=== PATIENT | male | born 1985 | race Caucasian/White ===

== ENCOUNTER 2016-03-06 22:11 | Emergency (ER) | payer OTHER ==
[2016-03-06] MEDS ORDERED: LORazepam 2 MG/ML INJ IVP ONE ×2 (22:25→23:25)
[2016-03-06] MEDS ORDERED: NS 1,000 ML IV ONE ×3 (22:25→23:38)
--- NOTE | 2016-03-06 22:26 | EDPHY ---
H & P Smoking Status: Never smoked Time Seen by Provider: 03/06/16 22:20 HPI/ROS: CHIEF COMPLAINT: Nausea and vomiting HISTORY OF PRESENT ILLNESS: This 30-year-old man has a long history of alcoholism typically drinking about a 5th a day of hard alcohol. His last alcoholic drink was at 5:00 a.m. today. He states that his roommates did find him on the floor today and wonders out loud to me if he might have had a seizure. However he did not have any trauma, did not bite his tongue or have incontinence. Roommates did not witness any seizure per patient. He presents with tremors and multiple episodes of nausea and vomiting. No coffee -ground emesis or hematemesis. Not associated with diarrhea or abdominal pain. Symptoms moderate to severe and worse with any oral intake. REVIEW OF SYSTEMS: Eye: no change in vision ENT: no sore throat Cardiac: no chest pain or syncope Pulmonary: no cough or SOB Abdomen: HPI Musculoskeletal: no back pain or neck pain Skin: no rash Neuro: no headache Constitutional: no fever : no urinary symptoms A comprehensive 10 point review of systems is otherwise negative aside from elements mentioned in the history of present illness. PAST MEDICAL HISTORY: Alcoholism Social history: Last drink 5:00 a.m. General Appearance: Alert and conversant, cooperative. Eyes: No scleral icterus. ENT, Mouth: Dry mucous membranes and no tongue laceration or abrasion. Respiratory: Normal respiratory effort, breath sounds equal, lungs are clear to auscultation. Cardiovascular: Regular rate and rhythm. Tachycardic Gastrointestinal: Abdomen is soft and non tender. No peritoneal signs. Neurological: Alert and oriented x3. Normally conversant. Face symmetric, normal movement and sensation in all extremities. Tremulous but not hallucinating. Skin: Warm and dry, no rashes. Musculoskeletal: No peripheral edema and no joint swelling. No spinal tenderness in the midline Psychiatric: Not agitated. Moderately anxious. Emergency Department course/MDM: Patient presents with acute alcohol withdrawal. 2 mg IV Ativan, CBC chemistry and EKG. 2 L IV normal saline for nausea and vomiting. Signed out to Dr. Brown at 10:30 p.m. with a plan for symptomatic treatment of alcohol withdrawal, discharge to detox if symptoms can be controlled, and chemistries do not show a metabolic abnormality that requires hospitalization. 2250: Calmer, heart rate 100, no vomiting currently, not tremulous now. (Yoel Rosa) Constitutional: Initial Vital Signs Temperature (C) 36.7 C 03/06/16 22:16 Heart Rate 117 H 03/06/16 22:16 Respiratory Rate 18 03/06/16 22:16 Blood Pressure 131/85 H 03/06/16 22:16 O2 Sat (%) 95 03/06/16 22:16 O2 Delivery Mode Room Air O2 (L/minute) 2 Allergies/Adverse Reactions: No Known Allergies Allergy (Verified 03/06/16 22:19) Home Medications: Medication Instructions Recorded Lexapro 03/06/16 Medical Decision Making - Diagnostics EKG Interpretation: 12-lead EKG interpreted by me; official reading is in trace master. My interpretation is sinus tachycardia rate 116. (Yoel Rosa) ED Course/Re-evaluation: 2:00 a.m.- The patient has been stable and is now feeling better. His tachycardia has improved and he is able to walk without difficulty. He will be discharged with a prescription for Librium. (Lesa Marr) Differential Diagnosis: Differential diagnosis considered for nausea and vomiting including but not limited to alcohol withdrawal, gastroenteritis, gastritis, appendicitis, and medication side effect. (Yoel Rosa) Other Provider: Patient was signed out to me by Dr. Yoel Rosa. The patient has received 2 L of normal saline and 3 mg of Ativan. He remains tachycardic and somewhat drowsy. I do not think he is appropriate for discharge at this time but I do think there is a good chance will be able to turn around. I have signed the patient out to Dr. Marr at 1:00 p.m. (Adonis Brown) - Data Points Laboratory Results: Laboratory Results 03/06/16 22:30 03/06/16 22:30 03/06/16 22:30 WBC 5.70 10^3/uL (3.80-9.50) RBC 5.25 10^6/uL (4.40-6.38) Hgb 17.5 g/dL (13.7-17.5) Hct 47.2 % (40.0-51.0) MCV 89.9 fL (81.5-99.8) MCH 33.3 pg (27.9-34.1) MCHC 37.1 H g/dL (32.4-36.7) RDW 12.2 % (11.5-15.2) Plt Count 112 L 10^3/uL (150-400) MPV 8.6 L fL (8.7-11.7) Neut % (Auto) 76.4 H % (39.3-74.2) Lymph % (Auto) 17.2 % (15.0-45.0) [place] % (Auto) 5.3 % (4.5-13.0) Eos % (Auto) 0.2 L % (0.6-7.6) Baso % (Auto) 0.7 % (0.3-1.7) Nucleat RBC Rel Count 0.0 % (0.0-0.2) Absolute Neuts (auto) 4.36 10^3/uL (1.70-6.50) Absolute Lymphs (auto) 0.98 L 10^3/uL (1.00-3.00) Absolute Monos (auto) 0.30 10^3/uL (0.30-0.80) Absolute Eos (auto) 0.01 L 10^3/uL (0.03-0.40) Absolute Basos (auto) 0.04 10^3/uL (0.02-0.10) Absolute Nucleated RBC 0.00 10^3/uL (0-0.01) Immature Gran % 0.2 % (0.0-1.1) Immature Gran # 0.01 10^3/uL (0.00-0.10) Sodium 145 H mEq/L (134-144) Potassium 4.3 mEq/L (3.5-5.2) Chloride 101 mEq/L (97-110) Carbon Dioxide 26 mEq/l (22-31) Anion Gap 18 mEq/L (8-16) BUN 10 mg/dL (7-23) Creatinine 0.8 mg/dL (0.7-1.3) Estimated GFR > 60 Glucose 101 H mg/dL (70-100) Calcium 8.6 mg/dL (8.5-10.4) Medications Given: Discontinued Medications Chlordiazepoxide (Librium 25 Mg Prepack#6) 1 btl TAKEHOME EDNOW ONE Stop: 03/07/16 01:18 Last Admin: 03/07/16 01:28 Dose: 1 btl Sodium Chloride (Ns) 1,000 mls @ 0 mls/hr IV ONCE ONE PRN Reason: Wide Open Stop: 03/06/16 22:26 Last Admin: 03/06/16 22:50 Dose: 1,000 mls Sodium Chloride (Ns) 1,000 mls @ 0 mls/hr IV ONCE ONE PRN Reason: Wide Open Stop: 03/06/16 22:26 Last Admin: 03/06/16 22:51 Dose: 1,000 mls Sodium Chloride (Ns) 1,000 mls @ 3,000 mls/hr IV ONCE ONE Stop: 03/06/16 23:57 Last Admin: 03/06/16 23:38 Dose: 1,000 mls Lorazepam (Ativan Injection) 2 mg IVP EDNOW ONE Stop: 03/06/16 22:26 Last Admin: 03/06/16 22:49 Dose: 2 mg Lorazepam (Ativan Injection) 1 mg IVP EDNOW ONE Stop: 03/06/16 23:26 Last Admin: 03/06/16 23:36 Dose: 1 mg Departure - Departure Disposition: Home, Routine, Self-Care Clinical Impression: Withdrawal symptoms, alcohol Condition: Good Instructions: Alcohol Withdrawal (ED), Chlordiazepoxide/Clidinium (By mouth) Referrals: NONE *PRIMARY CARE P,. [Primary Care Provider] - As per Instructions Lisa Serna MD [Medical Doctor] - As per Instructions
[2016-03-06 22:40] LABS: % IMMATURE GRANULYOCYTES 0.2 % (0.0-1.1); ABSOLUTE IMMATURE GRANULOCYTES 0.01 10^3/uL (0.00-0.10); ADD DIFF? NO; ADD MORPH? NO; ADD SCAN? NO; ATYPICAL LYMPHOCYTE FLAG 10 (0-99); FRAGMENT RBC FLAG 0 (0-99); HEMATOCRIT 47.2 % (40.0-51.0); HEMOGLOBIN 17.5 g/dL (13.7-17.5); LEFT SHIFT FLG 0 (0-99); LIPEMIA HEMOLYSIS FLAG 90 (0-99); MEAN CELL HEMOGLOBIN 33.3 pg (27.9-34.1); MEAN CELL HEMOGLOBIN CONCENTR. 37.1 g/dL (32.4-36.7); MEAN CELL VOLUME 89.9 fL (81.5-99.8); MEAN PLATELET VOLUME 8.6 fL (8.7-11.7); PLATELET CLUMPS FLAG 0 (0-99); PLATELET COUNT 112 10^3/uL (150-400); RED BLOOD CELL COUNT 5.25 10^6/uL (4.40-6.38); RED CELL DISTRIBUTION WIDTH 12.2 % (11.5-15.2)
--- NOTE | 2016-03-06 22:44 | CPEKG ---
Heart Rate: 116 RR Interval: 517 P-R Interval: 136 QRSD Interval: 86 QT Interval: 348 QTC Interval: 484 P [place]: 68 QRS [place]: 82 T Wave [place]: 28 EKG Severity - BORDERLINE ECG - EKG Impression: SINUS TACHYCARDIA EKG Impression: ABERRANT COMPLEX, POSSIBLY SUPRAVENTRICULAR EKG Impression: BORDERLINE PROLONGED QT INTERVAL Electronically Signed By: Yoel Rosa 06-Mar-2016 22:46:01
[2016-03-06 22:53] LABS: ANION GAP 18 mEq/L (8-16); CALCIUM 8.6 mg/dL (8.5-10.4); CARBON DIOXIDE 26 mEq/l (22-31); CHLORIDE 101 mEq/L (97-110); CREATININE 0.8 mg/dL (0.7-1.3); GLOMERULAR FILTRATION RATE > 60; GLUCOSE 101 mg/dL (70-100); POTASSIUM 4.3 mEq/L (3.5-5.2); SODIUM 145 mEq/L (134-144)
[2016-03-07] MEDS ORDERED: CHLORDIAZEPOXIDE 25MG PREPK#6 BTL TAKEHOME ONE ×2 (01:15→01:17)
[2016-03-07 01:29] VITALS: BP 107/64; PULSE 102; RESP 16; TEMP 98.4; O2SAT 96
== END 2016-03-07 01:28 | disposition home or self-care (01) ==
DX: F10.239 Alcohol dependence with withdrawal, unspecified (principal)
CPT/HCPCS: 96374

== ENCOUNTER 2016-03-08 17:05 | Emergency (ER) | payer OTHER ==
[2016-03-08] MEDS ORDERED: NS 1,000 ML IV ONE ×2 (17:10→19:48)
--- NOTE | 2016-03-08 17:10 | EDPHY ---
H & P HPI/ROS: HPI CHIEF COMPLAINT: Alcohol intoxication HISTORY OF PRESENT ILLNESS: This patient 30-year-old male who is very familiar with, presents emergency room by EMS for being found highly intoxicated with alcohol in front of the library. Patient was brought here to the emergency room for evaluation as the patient was having a hard time walking he appeared very intoxicated. Upon arrival here in the emergency room the patient tells me that he drank a large amount of liquor this evening. Denies any other focal medical complaints. Denies trauma. Here in emergency room is no complaints he does smell of alcohol slurring his speech and has ataxia on exam. tells me last drink was approximately an hour ago. Past Medical History: Anxiety attack, panic attack, chronic alcoholism Past Surgical History: Denies significant surgical history Social History: Daily alcohol use, homeless, denies illicit drugs except marijuana, Family History: Noncontributory ROS REVIEW OF SYSTEMS: A comprehensive 10 point review of systems is otherwise negative aside from elements mentioned in the history of present illness. Exam Constitutional intoxicated with alcohol, smells of alcohol, triage nursing summary reviewed, vital signs reviewed Eyes normal conjunctivae and sclera, horizontal beating nystagmus consistent with acute alcohol intoxication HENT normal inspection, atraumatic, moist mucus membranes, no epistaxis, neck supple/ no meningismus, no raccoon eyes. Respiratory clear to auscultation bilaterally, normal breath sounds, no respiratory distress, no wheezing. Cardiovascular rate normal, regular rhythm, no murmur, no edema, distal pulses normal. Gastrointestinal soft, non-tender, no rebound, no guarding, normal bowel sounds, no distension, no pulsatile mass. Genitourinary no CVA tenderness. Musculoskeletal no midline vertebral tenderness, full range of motion, no calf swelling, no tenderness of extremities, no meningismus, good pulses, neurovascularly intact. Skin pink, warm, & dry, no rash, skin atraumatic. Neurologic truncal ataxia, awake, alert and oriented x 3, AAOx3, moves all 4 extremities equally, motor intact, sensory intact, CN II-XII intact, , normal vision, slurred speech Psychiatric normal mood/affect. Heme/Lymph/Immune no lymphadenopathy. Differential Diagnosis: Includes but is not limited to in a particular order acute alcohol intoxication, dehydration, electrolyte abnormality Medical Decision Making: this patient had an IV established obtain blood work including serum alcohol level, he will be gently hydrated IV fluids. Will monitor him closely for sobriety. Re-evaluation: 2114: patient's alcohol was 440. He is now more sober and ambulating able to give us a urine sample. However he maintained still intoxicated with alcohol. He will need more time to sober. 2136: Patient unable to ambulate well. Still needs time to sober. Signed over at 10PM Shift Change to Dr. Del Valle Source: Patient, EMS - Personal History Tetanus Vaccine Date: <10 years - Medical/Surgical History Hx Asthma: No Hx Chronic Respiratory Disease: No Hx Diabetes: No Hx Cardiac Disease: No Hx Renal Disease: No Hx Cirrhosis: No Hx Alcoholism: Yes Hx HIV/AIDS: No Hx Splenectomy or Spleen Trauma: No Other PMH: depression/anxiety, ETOH abuse - Social History Smoking Status: Never smoked Constitutional: Initial Vital Signs Temperature (C) 36.7 C 03/08/16 17:17 Heart Rate 104 H 03/08/16 17:17 Respiratory Rate 20 03/08/16 17:17 Blood Pressure 142/100 H 03/08/16 17:17 O2 Sat (%) 95 03/08/16 17:17 O2 Delivery Mode Room Air Allergies/Adverse Reactions: No Known Allergies Allergy (Verified 03/06/16 22:19) Home Medications: Medication Instructions Recorded Lexapro 03/06/16 Medical Decision Making - Data Points Medications Given: Discontinued Medications Sodium Chloride (Ns) 1,000 mls @ 0 mls/hr IV ONCE ONE PRN Reason: Wide Open Stop: 03/08/16 17:11 Last Admin: 03/08/16 17:15 Dose: 1,000 mls Sodium Chloride (Ns) 1,000 mls @ 0 mls/hr IV ONCE ONE PRN Reason: Wide Open Stop: 03/08/16 19:49 Last Admin: 03/08/16 19:56 Dose: 1,000 mls Departure - Departure Disposition: Home, Routine, Self-Care Clinical Impression: Alcohol intoxication Qualifiers: Complication of substance-induced condition: uncomplicated Qualifier Code: ( F10.120) Alcohol abuse with intoxication, uncomplicated Condition: Good Instructions: Abuse of Alcohol (ED), Alcohol Intoxication (ED) Referrals: Patient,NotPresent [Unknown] - As per Instructions
[2016-03-08 18:11] LABS: ETHANOL SERUM 440 mg/dL (0-10)
[2016-03-08 19:05] VITALS: TEMP 98.4
[2016-03-09 01:10] VITALS: BP 133/84
[2016-03-09 01:13] VITALS: PULSE 96; RESP 16; O2SAT 96
== END 2016-03-09 01:30 | disposition home or self-care (01) ==
LOC: EDUNIT#
DX: F10.120 Alcohol abuse with intoxication, uncomplicated (principal)
CPT/HCPCS: 80305; G0480

== ENCOUNTER 2016-03-09 19:01 | Emergency (ER) | payer OTHER ==
[2016-03-09] MEDS ORDERED: NS 2,000 ML IV ONE (19:02)
[2016-03-09] MEDS ORDERED: ONDANSETRON 4 MG/2 ML VIAL IVP ONE (19:02)
[2016-03-09] MEDS ORDERED: ONDANSETRON 4 MG/2 ML VIAL ONE (19:03)
[2016-03-09] MEDS ORDERED: LORazepam 2 MG/ML INJ IVP ONE (19:03)
[2016-03-09] MEDS ORDERED: LORazepam 2 MG/ML INJ ONE (19:04)
--- NOTE | 2016-03-09 19:05 | EDPHY ---
H & P HPI/ROS: HPI CHIEF COMPLAINT: Alcohol intoxication, alcohol withdrawal HISTORY OF PRESENT ILLNESS: This patient very pleasant 30-year-old male, he is an alcoholic, he was recently seen here in the emergency room for acute alcohol intoxication and discharge earlier this morning. He presents back to the emergency room after he states he was trying to detox from alcohol at home and felt like he was withdrawing. He drank multiple glasses of wine. Still felt anxious so called 911. Upon arrival to the emergency room is resting comfortably there is no evidence of acute alcohol withdrawal he does appear intoxicated. Past Medical History: anxiety, panic attacks, alcohol abuse, alcoholism Past Surgical History: denies significant surgical history Social History: daily alcohol use Family History: Noncontributory ROS REVIEW OF SYSTEMS: A comprehensive 10 point review of systems is otherwise negative aside from elements mentioned in the history of present illness. Exam Constitutional smells of alcohol, intoxicated alcohol, triage nursing summary reviewed, vital signs reviewed, awake/alert. Eyes normal conjunctivae and sclera, EOMI, PERRLA. HENT normal inspection, atraumatic, moist mucus membranes, no epistaxis, neck supple/ no meningismus, no raccoon eyes. Respiratory clear to auscultation bilaterally, normal breath sounds, no respiratory distress, no wheezing. Cardiovascular rate normal, regular rhythm, no murmur, no edema, distal pulses normal. Gastrointestinal soft, non-tender, no rebound, no guarding, normal bowel sounds, no distension, no pulsatile mass. Genitourinary no CVA tenderness. Musculoskeletal no midline vertebral tenderness, full range of motion, no calf swelling, no tenderness of extremities, no meningismus, good pulses, neurovascularly intact. Skin pink, warm, & dry, no rash, skin atraumatic. Neurologic awake, alert and oriented x 3, AAOx3, moves all 4 extremities equally, motor intact, sensory intact, CN II-XII intact, normal cerebellar, normal vision, slurring his speech consider alcohol intoxication Psychiatric normal mood/affect. Heme/Lymph/Immune no lymphadenopathy. Differential Diagnosis: includes but is not limited to in a particular order, Alcohol intoxication, dehydration, electrolyte abnormality, alcohol w/d Medical Decision Making:This patient had an IV established be medicated with IV fluids, IV Zofran for nausea 0.5 mg IV Ativan for anxiety will check basic blood work including electrolytes and his alcohol level. Re-evaluation: 1953: re-examination at this time this patient is resting comfortably no acute distress. He ambulated well to the bathroom, steady gait, is noted alcohol level is less than 100. No evidence of acute withdrawal specifically no tachycardia no tremors. No seizure activity. He is agreeable to be discharged to the [facility]. Source: Patient, EMS - Personal History Tetanus Vaccine Date: <10 years - Medical/Surgical History Hx Asthma: No Hx Chronic Respiratory Disease: No Hx Diabetes: No Hx Cardiac Disease: No Hx Renal Disease: No Hx Cirrhosis: No Hx Alcoholism: Yes Hx HIV/AIDS: No Hx Splenectomy or Spleen Trauma: No Other PMH: depression/anxiety, ETOH abuse - Social History Smoking Status: Never smoked Constitutional: Initial Vital Signs Temperature (C) 36.9 C 03/09/16 19:11 Heart Rate 70 03/09/16 19:11 Respiratory Rate 14 03/09/16 19:11 Blood Pressure 133/78 H 03/09/16 19:11 O2 Sat (%) 94 03/09/16 19:11 O2 Delivery Mode Room Air Allergies/Adverse Reactions: No Known Allergies Allergy (Verified 03/09/16 19:10) Home Medications: Medication Instructions Recorded Lexapro 03/06/16 Medical Decision Making - Data Points Laboratory Results: Laboratory Results 03/09/16 19:07 03/09/16 19:07 03/09/16 19:07 WBC 2.48 L 10^3/uL (3.80-9.50) RBC 4.82 10^6/uL (4.40-6.38) Hgb 16.1 g/dL (13.7-17.5) Hct 42.9 % (40.0-51.0) MCV 89.0 fL (81.5-99.8) MCH 33.4 pg (27.9-34.1) MCHC 37.5 H g/dL (32.4-36.7) RDW 12.2 % (11.5-15.2) Plt Count 67 L 10^3/uL (150-400) MPV 9.7 fL (8.7-11.7) Neut % (Auto) 53.2 % (39.3-74.2) Lymph % (Auto) 33.5 % (15.0-45.0) [place] % (Auto) 10.1 % (4.5-13.0) Eos % (Auto) 2.0 % (0.6-7.6) Baso % (Auto) 0.8 % (0.3-1.7) Nucleat RBC Rel Count 0.0 % (0.0-0.2) Absolute Neuts (auto) 1.32 L 10^3/uL (1.70-6.50) Absolute Lymphs (auto) 0.83 L 10^3/uL (1.00-3.00) Absolute Monos (auto) 0.25 L 10^3/uL (0.30-0.80) Absolute Eos (auto) 0.05 10^3/uL (0.03-0.40) Absolute Basos (auto) 0.02 10^3/uL (0.02-0.10) Absolute Nucleated RBC 0.00 10^3/uL (0-0.01) Immature Gran % 0.4 % (0.0-1.1) Immature Gran # 0.01 10^3/uL (0.00-0.10) Sodium 137 mEq/L (134-144) Potassium 3.9 mEq/L (3.5-5.2) Chloride 92 L mEq/L (97-110) Carbon Dioxide 30 mEq/l (22-31) Anion Gap 15 mEq/L (8-16) BUN 5 L mg/dL (7-23) Creatinine 0.6 L mg/dL (0.7-1.3) Estimated GFR > 60 Glucose 110 H mg/dL (70-100) Calcium 9.4 mg/dL (8.5-10.4) Total Bilirubin 1.7 H mg/dL (0.1-1.4) Conjugated Bilirubin 0.3 mg/dL (0.0-0.5) Unconjugated Bilirubin 1.4 H mg/dL (0.0-1.1) AST 160 H IU/L (17-59) ALT 163 H IU/L (21-72) Alkaline Phosphatase 66 IU/L (38-126) Total Protein 8.4 H g/dL (6.3-8.2) Albumin 4.8 g/dL (3.5-5.0) Lipase 135.0 IU/L (23-300) Ethyl Alcohol 42 H mg/dL (0-10) Medications Given: Discontinued Medications Sodium Chloride (Ns) 2,000 mls @ 0 mls/hr IV ONCE ONE PRN Reason: Wide Open Stop: 03/09/16 19:03 Last Admin: 03/09/16 19:11 Dose: 2,000 mls Lorazepam (Ativan Injection) 1 mg IVP EDNOW ONE Stop: 03/09/16 19:04 Last Admin: 03/09/16 19:11 Dose: 1 mg Ondansetron HCl (Zofran) 4 mg IVP EDNOW ONE Stop: 03/09/16 19:03 Last Admin: 03/09/16 19:11 Dose: 4 mg Departure - Departure Disposition: Home, Routine, Self-Care Clinical Impression: Alcohol intoxication Qualifiers: Complication of substance-induced condition: uncomplicated Qualifier Code: ( F10.120) Alcohol abuse with intoxication, uncomplicated Condition: Good Instructions: Alcohol Intoxication (ED) Referrals: WILLIAN MULLEN [Primary Care Provider] - As per Instructions
[2016-03-09 19:13] VITALS: PULSE 70; RESP 14; TEMP 98.4; O2SAT 94
[2016-03-09 19:19] LABS: % IMMATURE GRANULYOCYTES 0.4 % (0.0-1.1); ABSOLUTE IMMATURE GRANULOCYTES 0.01 10^3/uL (0.00-0.10); ADD DIFF? NO; ADD MORPH? NO; ADD SCAN? NO; ATYPICAL LYMPHOCYTE FLAG 0 (0-99); FRAGMENT RBC FLAG 0 (0-99); HEMATOCRIT 42.9 % (40.0-51.0); HEMOGLOBIN 16.1 g/dL (13.7-17.5); LEFT SHIFT FLG 0 (0-99); MEAN CELL HEMOGLOBIN 33.4 pg (27.9-34.1); MEAN CELL HEMOGLOBIN CONCENTR. 37.5 g/dL (32.4-36.7); MEAN PLATELET VOLUME 9.7 fL (8.7-11.7); PLATELET CLUMPS FLAG 0 (0-99); PLATELET COUNT 67 10^3/uL (150-400); RED BLOOD CELL COUNT 4.82 10^6/uL (4.40-6.38); RED CELL DISTRIBUTION WIDTH 12.2 % (11.5-15.2)
[2016-03-09 19:22] LABS: LIPEMIA HEMOLYSIS FLAG 100 (0-99)
[2016-03-09 19:29] LABS: ALANINE AMINOTRANSFERASE 163 IU/L (21-72); ALBUMIN 4.8 g/dL (3.5-5.0); ALKALINE PHOSPHATASE 66 IU/L (38-126); ANION GAP 15 mEq/L (8-16); ASPARTATE AMINOTRANSFERASE 160 IU/L (17-59); BILIRUBIN,TOTAL 1.7 mg/dL (0.1-1.4); BILIRUBIN-CONJUGATED 0.3 mg/dL (0.0-0.5); BILIRUBIN-UNCONJUGATED 1.4 mg/dL (0.0-1.1); CALCIUM 9.4 mg/dL (8.5-10.4); CARBON DIOXIDE 30 mEq/l (22-31); CHLORIDE 92 mEq/L (97-110); CREATININE 0.6 mg/dL (0.7-1.3); ETHANOL SERUM 42 mg/dL (0-10); GLOMERULAR FILTRATION RATE > 60; GLUCOSE 110 mg/dL (70-100); POTASSIUM 3.9 mEq/L (3.5-5.2); SODIUM 137 mEq/L (134-144); TOTAL PROTEIN 8.4 g/dL (6.3-8.2)
[2016-03-09] MEDS ORDERED: CHLORDIAZEPOXIDE 25MG PREPK#6 BTL TAKEHOME ONE (19:55)
[2016-03-09 20:23] VITALS: BP 128/78
== END 2016-03-09 20:22 | disposition home or self-care (01) ==
LOC: EDUNIT#
DX: F10.120 Alcohol abuse with intoxication, uncomplicated (principal)
CPT/HCPCS: 96374; G0480; J2405